=== PATIENT | female | born 1950 | race Caucasian/White ===

== ENCOUNTER 2016-09-25 10:13 | Day surgery (SDC) | payer BC ==
[~2016-09-25 10:13] MED LIST: LIDOCAINE 1% 20 ML VIAL (10MG/ML) FOR IV START INTRADERMA PRN
[2016-09-25 11:37] VITALS: TEMP 97.8
[2016-09-25] MEDS: LACTATED RINGERS 1,000 ML IV SCH ×2 (11:45→12:10)
[2016-09-25] MEDS ORDERED: LIDOCAINE 1% INJ 10MG/ML (20 ML MDV) ONE (12:12)
[2016-09-25] MEDS ORDERED: PROPOFOL 10 MG/ML 20 ML VIAL IV ONE (12:12)
--- NOTE | 2016-09-25 13:00 | P.PCN ---
Date of Procedure: 09/25/16 Procedure(s) Performed: BRIEF HISTORY: Patient is a 66-year-old pleasant 66 female, scheduled for an elective colonoscopy as a part of surveillance of prior history of colon cancer. 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 She also has long-standing history of Crohn's ileitis diagnosed in 1999 and remains in clinical remission. She is scheduled for a surveillance colonoscopy today. PROCEDURE PERFORMED: Colonoscopy with biopsy. PREOPERATIVE DIAGNOSIS: Surveillance of colon cancer and history of Crohn's ileitis. IV sedation per Anesthesia. PROCEDURE: After informed consent was obtained, the patient, was brought into the endoscopy unit. IV conscious sedation was administered by Anesthesia under continuous monitoring. Initially the Olympus CF-160 flexible video colonoscope was then inserted in the rectum, and there was evidence of colorectal anastomotic stricture identified at 20 cm from the anal verge. The scope was removed and a pediatric colonoscope was then inserted in the rectum and with gentle manipulation was able to advance the scope through the stricture and gradually advanced into the cecum without any difficulty. Careful examination was performed as the scope was gradually being withdrawn. Ileocecal valve and the appendiceal orifice were visualized and appeared normal. Prep was excellent. The terminal ileum was intubated and there was evidence of some scarring noted in the distal ileum with few erosions and biopsies were done from this area. Mucosa of the cecum, ascending colon, transverse colon, descending colon and rectum appeared normal. There was proximal rectal anastomotic stricture identified. Retroflexion was performed in the rectum and no lesions were seen. The patient tolerated the procedure well. IMPRESSION: Rectal anastomotic stricture No evidence of colorectal neoplasia Mild terminal ileitis RECOMMENDATIONS: Findings of this examination were discussed with the patient as well as a family. She was advised to follow with the biopsy results. She can have a repeat surveillance colonoscopy in 3 years.
[2016-09-25 13:04] VITALS: BP 119/75; PULSE 75; RESP 18
== END 2016-09-25 13:45 | disposition home or self-care (01) ==
LOC: ORWHC2ENDO 10:13
PROVIDERS: ATTEND Internal Medicine Gastroenterology
DX: K52.9 Noninfective gastroenteritis and colitis, unspecified (principal); K62.4 Stenosis of anus and rectum; K50.00 Crohn's disease of small intestine without complications; Z85.038 Personal history of other malignant neoplasm of large intestine; Z90.49 Acquired absence of other specified parts of digestive tract; I10 Essential (primary) hypertension; F32.9 Major depressive disorder, single episode, unspecified; K21.9 Gastro-esophageal reflux disease without esophagitis; E66.9 Obesity, unspecified; Z79.899 Other long term (current) drug therapy; Z91.048 Other nonmedicinal substance allergy status
CPT/HCPCS: 88305; 45380; J2001; J2704

== ENCOUNTER 2020-01-07 08:00 | Day surgery (SDC) | payer BC, MEDICARE ==
[2020-01-06 09:01] VITALS: BMI 32.4
[~2020-01-07 08:00] MED LIST changes: +LACTATED RINGERS 1,000 ML IV SCH; +LIDOCAINE 1% (10MG/ML) FOR IV START INTRADERMA PRN; -LIDOCAINE 1% 20 ML VIAL (10MG/ML) FOR IV START INTRADERMA PRN
[2020-01-07 08:22] VITALS: TEMP 97.6
[2020-01-07] MEDS ORDERED: PROPOFOL 10 MG/ML 20 ML VIAL IV ONE (08:46)
--- NOTE | 2020-01-07 09:07 | P.PCN ---
Date of Procedure: 01/07/20 Procedure(s) Performed: BRIEF HISTORY: Patient is a 70-year-old pleasant white female scheduled for an elective colonoscopy as a part of surveillance of prior history of colon cancer diagnosed in 2012. She status post sigmoid colectomy at that time. Also has history of Crohn's disease. PROCEDURE PERFORMED: Colonoscopy. PREOPERATIVE DIAGNOSIS: History of sigmoid colon cancer is status post segmental colectomy in 2013./History of Crohn's. IV sedation per Anesthesia. PROCEDURE: After informed consent was obtained, the patient, was brought into the endoscopy unit. IV sedation was administered by Anesthesia under continuous monitoring. Digital rectal examination was normal. Initially the Olympus CF-160 flexible video colonoscope was then inserted in the rectum, and immediately there was a tight anastomotic stricture at 12 cm from the anal verge. With gentle manipulation I was able to push the scope through the stricture gradually advanced into the cecum without any difficulty. Careful examination was performed as the scope was gradually being withdrawn. Ileocecal valve and the appendiceal orifice were visualized and appeared normal. Prep was excellent. Mucosa of the cecum, ascending colon, transverse colon, descending colon and rectum appeared normal. There was some oozing noted at the site the anastomotic stricture. No masses identified. Retroflexion was performed in the rectum and no lesions were seen. The patient tolerated the procedure well. IMPRESSION: Rectal anastomosis stricture No evidence of colorectal neoplasia RECOMMENDATIONS: Findings of this examination were discussed with the patient as well his family. She was advised to have a repeat surveillance colonoscopy in 3 years from now because of the prior history of colon cancer.
[2020-01-07 09:18] VITALS: BP 112/74; PULSE 58; RESP 18
== END 2020-01-07 09:37 | disposition home or self-care (01) ==
LOC: ORWHC2ENDO 08:00
PROVIDERS: ATTEND Internal Medicine Gastroenterology
DX: Z12.11 Encounter for screening for malignant neoplasm of colon (principal); K62.4 Stenosis of anus and rectum; K50.90 Crohn's disease, unspecified, without complications; K21.9 Gastro-esophageal reflux disease without esophagitis; Z85.038 Personal history of other malignant neoplasm of large intestine; Z79.899 Other long term (current) drug therapy; Z91.09 Other allergy status, other than to drugs and biological substances
CPT/HCPCS: G0105; J2704; 45378

== ENCOUNTER → 2021-03-23 | Outpatient (CLI) | payer MEDICARE ==
--- NOTE | 2021-03-26 10:30 | MM ---
Reason for exam: screening (asymptomatic). Last mammogram was performed 6 years and 9 months ago. History: Patient is postmenopausal, has history of colon cancer at age 65, and history of other cancer. Family history of breast cancer in sister at age 66 and breast cancer in paternal aunt. 4 benign cyst aspirations of the left breast. 2 benign cyst aspirations of the right breast. Took estrogen for 7 years 10 months beginning at age 48. Physical Findings: A clinical breast exam by your physician is recommended on an annual basis and results should be correlated with mammographic findings. MG 3D Screening Mammo W/Cad Bilateral CC and MLO view(s) were taken. XCCL view(s) were taken of the right breast. Prior study comparison: June 30, 2014, bilateral MG screening mammo w CAD. February 05, 2013, [facility] DIGITAL LEFT BREAST MAMMOGRAM w/CAD. The breast tissue is heterogeneously dense. This may lower the sensitivity of mammography. Vascular calcifications bilaterally. There is no discrete abnormality. No significant changes when compared with prior studies. ASSESSMENT: Benign, BI-RAD 2 RECOMMENDATION: Routine screening mammogram of both breasts in 1 year.
== END | disposition home or self-care (01) ==
LOC: RADMAMWWP 11:07
PROVIDERS: ATTEND Family Medicine
DX: Z12.31 Encounter for screening mammogram for malignant neoplasm of breast (principal); Z78.0 Asymptomatic menopausal state; Z80.3 Family history of malignant neoplasm of breast; Z85.038 Personal history of other malignant neoplasm of large intestine
CPT/HCPCS: 77063; 77067

== ENCOUNTER → 2021-05-22 | Outpatient (CLI) | payer MEDICARE ==
--- NOTE | 2021-05-22 11:23 | BD ---
EXAMINATION TYPE: Axial Bone Density DATE OF EXAM: 05/22/2021 COMPARISON: 07.18.2014 CLINICAL HISTORY: 71 YR OLD FEMALE.....ICD-10 CODE: N95.1 POST MENOPAUSAL Height: 62.5 Weight: 189 FRAX RISK QUESTIONS: NOTHING NOTED HERE RISK FACTORS HISTORY OF: Active: YES Postmenopausal woman: TONNY, AT AGE 50 YRS OLD Take estrogen and/or progesterone medications: YRS FOR ABOUT 5 YRS, NONE NOW Hyperparathyroidism: NO Adrenal Insufficiency: NO MEDICATIONS: Additional Medications: CALCIUM, VIT D, LEXAPRO, REFLUX MED, MEDS FOR CRONES, Additional History: HX OF COLON CANCER, REFLUX, ANXIETY, CRONES EXAM MEASUREMENTS: Bone mineral densitometry was performed using the [employer] System. Bone mineral density as measured about the Lumbar spine is: ----- L1-L4(G/cm2): 1.057 T Score Values are as follows: ----- L1: -1.0 ----- L2: -1.2 ----- L3: -0.9 ----- L4: -1.1 ----- L1-L4: -1.0 Bone mineral density has: Decreased -5.0% since study of: 07.18.2014 Bone mineral density about the R hip (g/cm2): 0.865 Bone mineral density about the L hip (g/cm2): 0.866 T Score values are as follows: -----R Neck: -1.3 -----L Neck: -1.6 -----R Total: -1.1 -----L Total: -1.1 Bone mineral density has: Decreased -17.1% since study of: 07.18.2014 FRAX%s: THERE IS A 9.5% CHANCE FOR A MAJOR OSTEOPOROTIC FX AND A 1.4% FOR HIP.....PROBABILITY FOR FX IN 10 YRS TIME IMPRESSION: Osteopenia (T Score between -2.5 and -1) is now present. There is slightly increased risk of fracture and the patient may be considered for treatment. Re-Screen 2-5 years. NOTE: T-SCORE=SD OF THE YOUNG ADULT MEAN.
== END | disposition home or self-care (01) ==
LOC: RADBDWWP 09:21
PROVIDERS: ATTEND Family Medicine
DX: M85.89 Other specified disorders of bone density and structure, multiple sites (principal); K21.9 Gastro-esophageal reflux disease without esophagitis; Z85.038 Personal history of other malignant neoplasm of large intestine
CPT/HCPCS: 77080

== ENCOUNTER → 2022-07-16 | Outpatient (CLI) | payer MEDICARE ==
--- NOTE | 2022-07-17 18:41 | MM ---
Reason for Exam: Screening (asymptomatic). Last mammogram was performed 1 year(s) and 4 month(s) ago. Patient History: Menarche at age 14. First Full-Term at age 24. Left ovary removed at age 48. Right ovary removed at age 48. Hysterectomy at age 48. Postmenopausal. Colorectal cancer, age 65. Estrogen for 7 years, 10 months, from age 48 until age 56. Benign Cyst Aspiration on the right side. Benign Cyst Aspiration on the right side. Benign Cyst Aspiration on the left side. Benign Cyst Aspiration on the left side. Benign Cyst Aspiration on the left side. Benign Cyst Aspiration on the left side. Paternal aunt had breast cancer. Sister had breast cancer, age 66. Risk Values: Randa 5 year model risk: 3.3%. NCI Lifetime model risk: 9.5%. Prior Study Comparison: 02/05/2013 Left Diagnostic Mammogram, [facility]. 06/30/2014 Bilateral Screening Mammogram, [facility]. 03/23/2021 Bilateral Screening Mammogram, [facility]. Tissue Density: The breast tissue is heterogeneously dense. This may lower the sensitivity of mammography. Findings: Analyzed By CAD. Benign vascular calcifications in both sides. No significant change from prior exams. Overall Assessment: Benign, BI-RAD 2 Management: Screening Mammogram of both breasts in 1 year. 1. Patient should continue monthly self breast exams. 2. A clinical breast exam by your physician is recommended on an annual basis. 3. This exam should not preclude additional follow-up of suspicious palpable abnormalities. Electronically signed and approved by: Jasen Felder M.D. Radiologist
== END | disposition home or self-care (01) ==
LOC: RADMAMWWP 15:14
PROVIDERS: ATTEND Family Medicine
DX: Z12.31 Encounter for screening mammogram for malignant neoplasm of breast (principal); Z80.3 Family history of malignant neoplasm of breast; Z78.0 Asymptomatic menopausal state; Z98.890 Other specified postprocedural states
CPT/HCPCS: 77063; 77067

== ENCOUNTER → 2024-01-22 | Outpatient (CLI) | payer MEDICARE ==
--- NOTE | 2024-01-25 16:27 | BD ---
EXAMINATION TYPE: Axial Bone Density DATE OF EXAM: 01/22/2024 CLINICAL HISTORY: 74 years old Female. ICD-10 CODE: Z78.0 MENOPAUSE Height: 62.2in Weight: 188lb FRAX RISK QUESTIONS: Secondary Osteoporosis: RISK FACTORS HISTORY OF: MEDICATIONS: EXAM MEASUREMENTS: Bone mineral densitometry was performed using the [employer] System. Bone mineral density as measured about the Lumbar spine is: ----- L1-L4(G/cm2): 1.005 T Score Values are as follows: ----- L1: -1.4 ----- L2: -1.1 ----- L3: -1.7 ----- L4: -1.7 ----- L1-L4: -1.5 Z Score Values are as follows: ----- L1: -0.4 ----- L2: -0.1 ----- L3: -0.7 ----- L4: -0.7 ----- L1-L4: -0.4 Bone mineral density has: Decreased -4.9% since study of: 05-22-21 Bone mineral density about the R hip (g/cm2): 0.825 Bone mineral density about the L hip (g/cm2): 0.793 T Score values are as follows: -----R Neck: -1.6 -----L Neck: -2.0 -----R Total: -1.5 -----L Total: -1.7 Z Score values are as follows: -----R Neck: -0.3 -----L Neck: -0.7 -----R Total: -0.4 -----L Total: -0.6 Bone mineral density has: Decreased -6.5% since study of: 05-22-21 FRAX%s: The graph provided illustrates a 11.9% chance for a major osteoporotic fx and a 2.5% chance f or the hips probability for fx in 10 years time. IMPRESSION: Osteopenia (T Score between -2.5 and -1). There is slightly increased risk of fracture and the patient may be considered for treatment. Re-Screen 2-5 years. NOTE: T-SCORE=SD OF THE YOUNG ADULT MEAN.
--- NOTE | 2024-01-30 12:23 | MM ---
Reason for Exam: Screening (asymptomatic). Last mammogram was performed 1 year(s) and 6 month(s) ago. Patient History: Menarche at age 14. First Full-Term at age 24. Left ovary removed at age 48. Right ovary removed at age 48. Hysterectomy at age 48. Postmenopausal. Colorectal cancer, age 65. Estrogen for 7 years, 10 months, from age 48 until age 56. Benign Cyst Aspiration on the right side. Benign Cyst Aspiration on the right side. Benign Cyst Aspiration on the left side. Benign Cyst Aspiration on the left side. Benign Cyst Aspiration on the left side. Benign Cyst Aspiration on the left side. Paternal aunt had breast cancer. Sister had breast cancer, age 66. Risk Values: Randa 5 year model risk: 3.4%. NCI Lifetime model risk: 8.6%. Prior Study Comparison: 06/30/2014 Bilateral Screening Mammogram, [facility]. 03/23/2021 Bilateral Screening Mammogram, [facility]. 07/16/2022 Bilateral MG 3D screening mammo w/cad, [facility]. Tissue Density: The breasts are heterogeneously dense, which may obscure small masses. Findings: Analyzed By CAD. Right breast: There is no suspicious group of microcalcifications or new suspicious mass. Left breast: There is no suspicious group of microcalcifications or new suspicious mass. Overall Assessment: Negative, BI-RAD 1 Management: Screening Mammogram of both breasts in [address] [facility] will attempt to contact patient to return for supplemental views and ultrasound if indicated. Patient should continue monthly self-breast exams. A clinical breast exam by your physician is recommended on an annual basis. This exam should not preclude additional follow-up of suspicious palpable abnormalities. Note on Randa scores and lifetime risk: 1. A Randa score greater than 3% is considered moderate risk. If this is the case, consider specialist referral to assess eligibility for a risk reducing agent. 2. If overall lifetime risk for the development of breast cancer is 20% or higher, the patient may qualify for future screening with alternating mammogram and breast MRI. Electronically signed and approved by: Duncan Mcdonald DO
== END | disposition home or self-care (01) ==
LOC: RADMAMWWP 14:16
PROVIDERS: ATTEND Family Medicine
DX: Z12.31 Encounter for screening mammogram for malignant neoplasm of breast (principal); M85.89 Other specified disorders of bone density and structure, multiple sites; R92.333 Mammographic heterogeneous density, bilateral breasts; Z78.0 Asymptomatic menopausal state; Z80.3 Family history of malignant neoplasm of breast
CPT/HCPCS: 77063; 77067; 77080